=== PATIENT | male | born 1995 | race Caucasian/White ===

== ENCOUNTER 2018-12-10 08:53 | Day surgery (SDC) | payer BC, MEDICAID ==
[2018-12-07 13:36] VITALS: BMI 23.7
[~2018-12-10 08:53] MED LIST: DEXAMETHASONE SOD PHOSPHATE 10 MG/ML 1 ML VIAL IV ONE; FAMOTIDINE 20 MG/2 ML VIAL IV ONE; HYDROmorphone 0.5 MG/0.5 ML SYRINGE IVP PRN; LACTATED RINGERS 1,000 ML IV SCH; LIDOCAINE 1% 20 ML VIAL (10MG/ML) FOR IV START INTRADERMA PRN; MIDAZOLAM 2 MG/2 ML VIAL IV PRN; ONDANSETRON 4 MG/2 ML VIAL IVP ONE; SCOPOLAMINE 1.5MG/72HR PATCH TRANSDERM ONE
[2018-12-10] MEDS: OXYMETAZOLINE 0.05% NASL SPRAY 1 SPRAY BOTTLE NASAL ONE ×5 (10:32→10:52)
[2018-12-10] MEDS ORDERED: LIDOCAINE 1% INJ 10MG/ML (20 ML MDV) ONE (11:14)
[2018-12-10] MEDS ORDERED: GLYCOPYRROLATE 0.2 MG/ML 2 ML VIAL ONE (11:14)
[2018-12-10] MEDS ORDERED: ROCURONIUM BROMIDE 10 MG/ML 10 ML VIAL IV ONE (11:14)
[2018-12-10] MEDS ORDERED: fentaNYL (PF) 50 MCG/ML 2 ML AMP ONE (11:14)
[2018-12-10] MEDS ORDERED: SUCCINYLCHOLINE CHLORIDE 100 MG/5 ML SYR IV ONE (11:14)
[2018-12-10] MEDS ORDERED: MIDAZOLAM 2 MG/2 ML VIAL ONE (11:14)
[2018-12-10] MEDS ORDERED: NEOSTIGMINE 1 MG/ML 10 ML VIAL ONE (11:14)
[2018-12-10] MEDS ORDERED: PROPOFOL 10 MG/ML 20 ML VIAL IV ONE (11:14)
[2018-12-10] MEDS ORDERED: LIDOCAINE 1%-EPI 1:100,000 20 ML VIAL SQ ONE ×3 (11:35→11:44)
[2018-12-10] MEDS ORDERED: BUPIVACAIN-EPI 0.5%-1:200,000 30 ML VIAL SQ ONE ×3 (11:35→11:44)
[2018-12-10] MEDS ORDERED: BACITRACIN 500 UNIT/GM OINT 28.4 GM TUBE TOPICAL ONE ×2 (11:36→11:44)
[2018-12-10] MEDS ORDERED: FLUORESCEIN STRIPS 1 MG STRIP MISCELLANE ONE ×2 (11:36→11:44)
[2018-12-10 13:37] VITALS: TEMP 97.3
[2018-12-10 13:39] VITALS: RESP 18
--- NOTE | 2018-12-10 13:44 | P.OP ---
Date of Procedure: 12/10/18 Preoperative Diagnosis: Deviated nasal septum, external nasal deformity secondary to a closed nasal bone fracture Bilateral hypertrophy of inferior nasal turbinates Postoperative Diagnosis: Same Procedure(s) Performed: Rhinoplasty Septoplasty Bilateral submucosal resection of the inferior nasal turbinates with outfracturing compression Anesthesia: ALDAIR Surgeon: Arsenio Maldonado Estimated Blood Loss (ml): 5 Pathology: none sent Condition: stable Disposition: PACU Indications for Procedure: Patient presented with a severe external nasal deformity after a nasal bone fracture. 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 He cannot breathe through his nose has poor sense of smell and an obvious box nose nasal deformity from his fractures. Patient has requested surgical correction. All risks, benefits, and alternative therapies were discussed. Consent was obtained and all questions were answered. Operative Findings: Patient was found have a severe deviated nasal septum with a large bony spur along the floor the nose. External nasal deformity with severe with a large box nose deformity. Description of Procedure: This patient was taken to the operative room and placed in the supine position. A general inhalation anesthetic was administered to the patient by the department of anesthesia with a functioning IV line in place. The patient was monitored throughout the entire case by the department of anesthesia. The eyes were taped shut for protection. The patient was placed in a slight reverse Trendelenburg position. The patient had previously utilize Afrin nasal spray preoperatively. The nose was evaluated and the septum lateral nasal wall and inferior turbinates were injected with lidocaine 1% with epinephrine 1 100,000 bilaterally. Approximately 10 minutes were allowed wait for full vasoconstrictive effects to take place. At this point a caudal incision was made over the caudal portion of the left septum down to the mucoperichondrium. A mucoperichondrial flap was elevated on the left side and dissection was carried with use of tunnels posteriorly. We then made a crossover incision through the cartilage to the contralateral side and for the mucoperichondrial flap development was performed to the extent of visualization on the contralateral side. After the cartilage was freed with use of several crosshatching incisions and removal of some redundant strips of septal cartilage, the septum was straightened and placed back in the midline. The septum was sutured fixated to the ovarian groove. Excellent straightening occurred and the septum was visibly straight. Incision was closed with a 40 rapid Vicryl. We utilized a running nonlocking fashion for closure of the incision. A quilting stitch was used to reapproximate the septal flaps with use of a 40 rapid Vicryl. Attention was then paid to the external nose. The patient's nose externally and internally was sterilely prepped and draped with Betadine. We made an intercartilaginous incision bilaterally with a 15 blade. With use of a Andi elevator we elevated the soft tissue over the nasal dorsum. We then utilized gold handle rasp and maltz rasp. We then utilized medial and lateral osteotomies to fracture the nasal bones and place him in better position. We recontoured the cartilaginous nasal dorsum with a 15 blade. Excellent cosmetic results were obtained. We got rid the box nose deformity straighten the nose and placed it into good alignment. The irregular bony hump was removed and the nose had a normal anatomic contour. Cast was applied utilizing a thermal splint. Intranasal splints were inserted and fixated at the end of the case. We utilized Garland nasal splints. There will be removed and the patient returns to the office. Attention was then paid to the inferior turbinates. The bilateral inferior turbinates were hypertrophic and obstructive. We entered the anterior portion of the inferior turbinates with use of a microdebrider. We remove bone and submucosal elements with use of a microdebrider bilaterally. The inferior turbinates underwent a submucosal resection with removal of submucosal tissue and bone. We obtained a much better and normal in size for breathing. The inferior turbinates were then outfractured and compressed with a Traetelo.comes nasal elevator. Excellent airway was obtained and was symmetric bilaterally. No bleeding was encountered.
[2018-12-10 14:24] VITALS: PULSE 63
[2018-12-10] MEDS ORDERED: ONDANSETRON 4 MG/2 ML VIAL IVP ONE (14:27)
[2018-12-10 14:39] VITALS: BP 137/67
== END 2018-12-10 15:00 | disposition home or self-care (01) ==
LOC: OR 08:53
PROVIDERS: ATTEND Otolaryngology
DX: J34.2 Deviated nasal septum (principal); S02.2XXA Fracture of nasal bones, initial encounter for closed fracture; S06.9X0A Unspecified intracranial injury without loss of consciousness, initial encounter; X58.XXXA Exposure to other specified factors, initial encounter; J34.3 Hypertrophy of nasal turbinates
CPT/HCPCS: 88300; 30420; 30140; J2250; J1100; J2710; J2405; J2001; J3010; J0330; J2704